=== PATIENT | male | born 1990 | race Caucasian/White ===

== ENCOUNTER 2018-02-03 12:45 | Emergency (ER) | payer OTHER ==
[~2018-02-03] VITALS: Ht 190.5 cm; Wt 93.5 kg
[2018-02-03 13:01] VITALS: BP 137/82
[2018-02-03 14:23] LABS: MICROSCOPIC AUTO
[2018-02-03 14:29] LABS: CULTURE INDICATED? YES
[2018-02-03] MEDS ORDERED: CEFTRIAXONE 250 MG ONE (15:15)
[2018-02-03] MEDS ORDERED: CEFTRIAXONE 1,000 MG ONE (15:16)
[2018-02-03] MEDS ORDERED: AZITHROMYCIN 500 MG TABLET PO ONE (15:30)
[2018-02-03] MEDS ORDERED: CEFTRIAXONE 1,000 MG IM ONE (15:30)
== END 2018-02-03 15:39 | disposition home or self-care (01) ==
LOC: ED 15:33
DX: N45.1 Epididymitis (principal); G89.11 Acute pain due to trauma
CPT/HCPCS: 76870; 81001; 87086; 93975; 96372; 99285; J0696

== ENCOUNTER 2020-05-30 11:59 | Emergency (ER) | payer OTHER ==
[2020-05-30] MEDS ORDERED: NEOSPORIN OINT. PKT 1 PACKET ONE (13:08)
--- NOTE | 2020-05-30 14:18 | NUR ---
Patient/Caregiver given discharge instructions and they have confirmed that they understand the instructions. Patient ambulatory with steady gait. PT UNDERSTANDS TO CALL REGARDING THE REMAINING REST RESULTS.
== END 2020-05-30 14:35 | disposition home or self-care (01) ==
LOC: ED 14:24
DX: Z77.21 Contact with and (suspected) exposure to potentially hazardous body fluids (principal)
CPT/HCPCS: 36415; 80074; 87806; 99283; G0475